=== PATIENT | female | born 2005 | race Caucasian/White ===

== ENCOUNTER 2024-08-09 19:35 | Outpatient (REF) | payer BC, OTHER, SELFPAY ==
--- NOTE | ~2024-08-09 | MR_ITS ---
CLINICAL HISTORY: PAIN MR tibia left without contrast Comparison: None Findings: Normal marrow signal in the tibia and fibula of the left lower extremity. No periosteal reaction or internal bone lesions. No abnormal STIR signal to suggest stress injury. Muscular structures within the left calf and lower extremity are normal. There is a small focus of fluid anterior to the mid to lower tibia in the subcutaneous tissues, series 9, image 38. This small amount of fluid is deep to the subcutaneous fat and superficial to the periosteum. This fluid is not associated with the tibialis anterior tendon or muscle. IMPRESSION: 1. No evidence of marrow edema or stress reaction in the tibia or fibula. 2. Minimal amount fluid along the anterior surface of the mid to distal tibia, of uncertain clinical significance. This document has been electronically signed by: Mike Ortez MD on 08/09/2024 20:31:00
== END 2024-08-09 19:36 | disposition home or self-care (01) ==
LOC: HO.MRI 19:35
PROVIDERS: Visit Provider Student in an Organized Health Care Education/Training Program
DX: M79.662 Pain in left lower leg (principal)
CPT/HCPCS: 73718

== ENCOUNTER → 2024-08-09 19:42 | Outpatient (BNV) | payer BC, OTHER, SELFPAY | PROVIDERS: Visit Provider Radiology Diagnostic Radiology | DX: M79.662 Pain in left lower leg (principal) | CPT/HCPCS: 73718 ==